=== PATIENT | female | born 1930 | race Caucasian/White ===

== ENCOUNTER 2016-03-27 15:06 | Emergency (ER) | payer MEDICARE ==
[2016-03-27 15:25] VITALS: TEMP 97.6; BMI 27.3
[2016-03-27] MEDS ORDERED: PROMETHAZINE 25 MG/ML VIAL IV ONE (15:49)
[2016-03-27] MEDS ORDERED: MECLIZINE 25 MG TAB PO ONE (15:49)
--- NOTE | 2016-03-27 15:49 | EDPRACDOC ---
- General Information Chief Complaint: Generalized Weakness Stated Complaint: WEAKNESS Time Seen by Provider: 03/27/16 15:31 Information Source: Patient Mode Of Arrival: Ambulance Home Medications: Home Medications Latanoprost [Xalatan] 1 drop OU QHS 06/05/15 Aspirin [Aspirin EC] 81 mg PO DAILY 03/27/16 Diazepam [Valium] 2 mg PO TID #20 tablet 03/27/16 Meclizine HCl 25 mg PO TID #30 tablet 03/27/16 Pravastatin [Pravachol] 40 mg PO DAILY 03/27/16 Tramadol HCl [Ultram] 50 mg PO HS PRN 03/27/16 Allergies/Adverse Reactions: Allergies Allergy/AdvReac Type Severity Reaction Status Date / Time No Known Allergies Allergy Verified 03/27/16 15:41 - History of Present Illness Onset: today Exact Onset of Symptoms: Known Date Symptoms Started: 03/27/16 Time Symptoms Started: 14:30 HPI: PATIENT STATES SHE HAS HAD RIGHT EAR PAIN INTERMITTENTLY. TODAY WHEN SHE PLACED HER HEAD BACKWARD INTO SINK AT THE [employer] SHE SUDDENLY HAD DIZZINESS. NOTED ROOM SPINNING. SUDDEN SWEATING. NAUSEA AND VOMITING. NO LOC. NO CHEST PAIN. NO SOB Symptoms Started: Reports: Suddenly Symptoms Description: Improved Symptoms: Reports: Vertigo Symptom Severity: Reports: Unable to performs ADL's Relevant History of: Reports: CVA Associated signs and symptoms:: Reports: Nausea, Vomiting ED Past Medical History - History Reviewed Yes Nurses notes reviewed and agree except as marked Travel Outside of [place] in the Last 3 Months?: No - Patient Medical History Neurological History: Reports: Cerebrovascular Accident Cardiac History: Reports: Hypercholesterolemia Psychological History: Reports: Depression Systemic History: Denies: Cancer - Social Medical History Smoking Status: Never smoker ETOH: None Substance Abuse: None Lives With: Family Lives In: Home EDM Review of Systems - Review of Systems ROS Negative Except as Marked: Yes All systems reviewed and were negative except as marked Constitutional: No Symptoms Reported. negative: Fever, Chills, Weakness, Fatigue, Loss of Appetite Eyes: No Symptoms Reported. negative: Redness, Blurred Vision, Double Vision, Discharge, Pain, Light Sensitive, Photophobia Ears: No Symptoms Reported. negative: Pain, Hearing Loss, Drainage, Ear Pulling Throat: No Symptoms Reported. negative: Pain, Swelling Nose: No Symptoms Reported. negative: Congestion, Bleeding, Discharge, Injection, Swelling, Deformity, Ecchymosis, Tender, Abrasion, Laceration Mouth: No Symptoms Reported. negative: Pain, Drooling Respiratory: No Symptoms Reported. negative: Cough, Brassy Cough, Barky Cough, Shortness of Breath, Wheezing, Hemoptysis Cardiovascular: No Symptoms Reported. negative: Chest Pain, Palpitations, Syncope, Edema, Orthopnea, PND, Skin Mottling, Cyanosis Gastrointestinal: Nausea, Vomiting. negative: Constipation, Diarrhea, Formula Intolerance, Melena, Pain Genitourinary: No Symptoms Reported. negative: Dysuria, Hematuria, Frequency, Discharge, Bleeding, Testicular Pain, Neurological: Dizziness. negative: Gait Difficulty, Headache, Numbness, Seizure , Speech Difficulty, Weakness Musculoskeletal: No Symptoms Reported. negative: Neck, Chestwall, Ribs, Back, Shoulder, Arm, Elbow, Forearm, Wrist, Hand, Pelvis, Hip, Femur, Knee, Leg, Ankle , Foot Integumentary: No Symptoms Reported. negative: Itching, Rash, Bruising, Wound Allergic/Immunologic: No Symptoms Reported. negative: Hives, Itching Hematologic: No Symptoms Reported. negative: Lymphadenopathy, Easy Bruising, Easy Bleeding Endocrine: No Symptoms Reported. negative: Weight Gain, Weight Loss Psychiatric: No Symptoms Reported. negative: Anxiety, Depression, Hallucinations, Insomnia, Suicidal - Physical Exam Constitutional: Alert (Awake), No apparent distress Oriented to: Time, Person, Place Last recorded Vital Signs: Last Vital Signs Temp 97.6 F 03/27/16 15:22 Pulse 58 L 03/27/16 15:22 Resp 18 03/27/16 15:22 BP 165/74 03/27/16 15:22 Pulse Ox 98 03/27/16 15:22 Oxygen Pulse Oxygen Saturation 98 O2 Device Room Air Oxygen Flow Rate Fraction of Inspired Oxygen ( FIO2) - HEENT Head: Normal ( normocephalic) Eye Exam: Normal (PERRL, EOMI, Sclera white) Oropharynx: Normal (Pharynx:Moist without exudate,Gums-no swelling) Tympanic Membrane: Normal ENT EAC: Normal TMJ: Normal Nose: No Symptoms Reported (septum midline) Neck: Normal (FROM, trachea at midline) - Respiratory/Cardiovascular Respiratory: Normal - CTA (BBS clear to auscultation without adventitious sounds ) Cardiovascular: Normal (RRR without murmur, gallop or rub) - GI Auscultation: Normal (NABS) Palpation: Normal (Soft,No rebound or guarding, non distended) Tenderness: Non tender Miller's Sign: Negative - Musculoskeletal Back: Normal (Non-Tender) Extremities: Normal (Normal tone, Pulses 2+ No cyanosis or edema, FROM) - Integumentary Skin: Normal, Warm, Dry Lymphatics: Normal (no adenopathy) - Neurologic Memory Impaired: Normal Motor Function: Normal (Normal tone, Pulses 2+ No cyanosis or edema, FROM) Cranial Nerve: Normal (CN II-X11 intact sensation, strength 5/5) Cerebellar: Normal Mood Description: Normal Perception: Normal - Results 03/27/16 16:00 03/27/16 16:00 - EKG EKG #1 EKG Time: 15:27 -: Yes EKG interpreted by me Rate: bpm: [address] [place]: Normal Rhythm: SB Block: None Hypertrophy: None ST: Normal Decision Time to Discharge: 17:52 - Departure Yes I personally saw and evaluated the patient. Disposition: Home Condition: Good Final Diagnosis: Vertigo Instructions: Weakness (General), Vertigo (ED) Education/Counseling Given To: Patient Education/Counseling Given Regarding: Diagnosis, Treatment, Prognosis, Follow Up Referrals: None,No Provider [Primary Care Provider] - One Week Jayson Nina MD [Staff Physician] - One Week Prescriptions: Diazepam [Valium] 2 mg PO TID #20 tablet Meclizine HCl 25 mg PO TID #30 tablet
[2016-03-27] MEDS ORDERED: NS 1,000 ML IV ONE (15:50)
--- NOTE | 2016-03-27 16:04 | DIRPT ---
CLINICAL DATA: Shortness of breath and weakness EXAM: PORTABLE CHEST - 1 VIEW COMPARISON: 11/25/2015 FINDINGS: The heart size and mediastinal contours are within normal limits. Both lungs are clear. The visualized skeletal structures are unremarkable. IMPRESSION: No active disease. Electronically Signed By: Bartolome Sheehan M.D. On: 03/27/2016 16:02
[2016-03-27 16:09] LABS: AUTOMATED BASOPHIL 0.7 % (0-2); AUTOMATED EOSINOPHIL 1.2 % (0-5); AUTOMATED LYMPH 17.6 % (17-44); AUTOMATED MONOCYTE 6.6 % (3-10); AUTOMATED NEUTROPHIL 73.9 % (45-76); MPV 9.3 fL (7.4-10.4)
[2016-03-27 16:21] LABS: PARTIAL THROMB. TIME 21.9 SEC (22-35)
[2016-03-27 16:22] LABS: BLOOD UREA NITROGEN 14 MG/DL (7-17); CALC CORRECTED 9.1 MG/DL (8.4-10.2); CALCIUM 8.5 MG/DL (8.4-10.2); CALCULATED OSMOLALITY 270 MOs/Kg (270-290); CHLORIDE 104 mEq/L (98-107); GLUCOSE 144 MG/DL (70-99); SODIUM LEVEL 138 mEq/L (137-146); TOTAL PROTEIN 6.3 G/DL (6.3-8.2)
--- NOTE | 2016-03-27 17:01 | DIRPT ---
CLINICAL DATA: Dizziness since last night. EXAM: CT HEAD WITHOUT CONTRAST TECHNIQUE: Contiguous axial images were obtained from the base of the skull through the vertex without intravenous contrast. COMPARISON: MR brain 11/25/2015 FINDINGS: There is no evidence of mass effect, midline shift, or extra-axial fluid collections. There is no evidence of a space-occupying lesion or intracranial hemorrhage. There is no evidence of a cortical-based area of acute infarction. 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 There is generalized cerebral atrophy. There is periventricular white matter low attenuation likely secondary to microangiopathy. The ventricles and sulci are appropriate for the patient's age. The basal cisterns are patent. Visualized portions of the orbits are unremarkable. The visualized portions of the paranasal sinuses and mastoid air cells are unremarkable. Cerebrovascular atherosclerotic calcifications are noted. The osseous structures are unremarkable. IMPRESSION: 1. No acute intracranial pathology. 2. Chronic microvascular disease and cerebral atrophy. Electronically Signed By: Bernarda Matthews On: 03/27/2016 16:59
[2016-03-27 18:38] VITALS: BP 126/60; PULSE 83
== END 2016-03-27 18:32 | disposition home or self-care (01) ==
LOC: ED 15:06
DX: R42 Dizziness and giddiness (principal)
CPT/HCPCS: 36415; 70450; 71010; 80053; 84484; 85025; 85610; 85730; 93005; 96361; 96374; 99283; A9270; J2550; J3490